=== PATIENT | male | born 1950 | race Two or more races ===

== ENCOUNTER → 2024-11-23 | Outpatient (CLI) | payer MEDICARE, SELFPAY ==
--- NOTE | 2024-11-23 13:02 | XR_ITS ---
Examination: MRI lumbar spine without contrast Date and time of exam: November 23, 2024 1330 hours Comparison May 21, 2010 INDICATIONS: Low back pain beginning 5 years ago severe the last 2 years radiating to the left leg Technique: Multiple MRI axial and sagittal sections lumbar spine. Sagittal T2-weighted images, TR 3500, TE 118 T1 weighted transverse sections, TR 688 T8.5, T2-weighted sagittal sections T1 weighted sagittal sections TR 621, TE 30 T2 axial sections, TR 4, 190, TE 84. Findings: Adequate alignment lumbar vertebral bodies on the lateral view No lumbar fracture Mild to moderate diffuse lumbar disc narrowing most prominent at L5-S1, L1-L2 Diffuse lumbar disc desiccation Adequate marrow signal lumbar vertebral bodies L5-S1 5 mm central lumbar disc bulge contiguous with the right S1 nerve root and producing mild bilateral L5 ganglionic compression L4-L5 4 mm central lumbar disc bulge L3-L4 6 mm central lumbar disc bulge L2-L3 2 mm central lumbar disc bulge L1-L2 2 mm central lumbar disc bulge IMPRESSION: L5-S1 5 mm central lumbar disc bulge contiguous with the right S1 nerve root, extending to the bilateral foramina producing bilateral mild L5 ganglionic compression L3-L4 6 mm central lumbar disc bulge
[2024-11-23 13:50] VITALS: BP 114/74; PULSE 84; RESP 20; O2SAT 92
[2024-11-23 13:55] VITALS: BP 114/72; PULSE 84; RESP 20; O2SAT 94
[2024-11-23 14:00] VITALS: BP 114/72; PULSE 84; RESP 20; O2SAT 92
[2024-11-23 14:05] VITALS: BP 115/75; PULSE 84; RESP 20; O2SAT 93
--- NOTE | 2024-11-23 14:26 | PC.NURSE ---
1407 patient has pacemaker and had MRI lumbar spine, tolerated procedure well, no abnormal cardiac arrhytimia noted
== END | disposition home or self-care (01) ==
PROVIDERS: Referring Provider Physician Assistant; Visit Provider Physician Assistant
DX: M51.379 Other intervertebral disc degeneration, lumbosacral region without mention of lumbar back pain or lower extremity pain (principal); M51.369 Other intervertebral disc degeneration, lumbar region without mention of lumbar back pain or lower extremity pain; G95.20 Unspecified cord compression
CPT/HCPCS: 72148

== ENCOUNTER 2025-04-30 13:23 | Emergency (ER) | payer OTHER, SELFPAY ==
[2025-04-30 13:39] VITALS: PULSE 95; RESP 16; O2SAT 97; BMI 29.7
--- NOTE | 2025-04-30 13:46 | EKG_ITS ---
[facility] Test Date: 2025-04-30 Pat Name: WAYNE JIMÉNEZ Department: Room: - Gender: Male Board Certified Family Physician: : [id number] Requested By: ED Temporary Provider Order Number: [id number] Reading MD: ED Temporary Provider Measurements Intervals Mart Rate: 61 P: WA: QRS: 107 QRSD: 148 T: 269 QT: 476 QTc: 480 Interpretive Statements ELECTRONIC VENTRICULAR PACEMAKER ABNORMAL RHYTHM ECG Compared to ECG 04/29/2023 13:23:09 Atrial-paced complex(es) or rhythm no longer present Intraventricular conduction delay no longer present /store/S0/[id number]/ecg/[id number].pdf
[2025-04-30 13:51] VITALS: BP 135/84; PULSE 66; RESP 19; TEMP 36.9; O2SAT 96
--- NOTE | 2025-04-30 14:08 | PD.EDNV ---
Nausea/Vomit./Diarrhea-RME/HPI General Chief complaint: Nausea/Vomiting/Diarrhea Stated complaint: WEAKNESS Time Seen by Provider: 04/30/25 13:47 Arrival date/time: 04/30/25 13:23 RME / HPI RME / HPI Narrative: 74 year old male with history of CAD s/p PCI x2, s/p pacemaker placement for bradycardia, hypertension, diabetes, hyperlipidemia, and sciatica presents to the ED BIBA from home for evaluation of nausea and vomiting beginning 3 days ago Thursday. Accompanied by subjective fevers, frequent hiccups in the last 2 days, mid abdominal pain, and back pain. Reports taking Zofran at home without improvement. Mentioned he has had positive sick contact at home, also sick with nausea vomiting beginning yesterday. Denies chest pain, cough, sore throat, diarrhea, or urinary symptoms. Related Data Home Medications ?Medication ?Instructions ?Recorded ?Confirmed aspirin 81 mg tablet,delayed 81 mg PO QDAY 05/16/19 03/29/23 release (Aspir-) atorvastatin 10 mg tablet 10 mg PO QDAY 05/16/19 03/29/23 carvedilol 6.25 mg tablet 6.25 mg PO BID 12/20/20 03/29/23 empagliflozin 25 mg tablet 25 mg PO QAM 12/20/20 03/29/23 (Jardiance) tramadol 50 mg tablet 50 mg PO TID 12/20/20 03/29/23 clopidogrel 75 mg tablet 75 mg PO QDAY 03/29/23 03/29/23 diphenhydramine 50 1 tab PO HS PRN Cramps 03/29/23 03/29/23 mg-acetaminophen 500 mg tablet doxazosin 4 mg tablet 4 mg PO QDAY 03/29/23 03/29/23 tirzepatide 5 mg/0.5 mL 5 mg subcut QWEEK 03/29/23 03/29/23 subcutaneous pen injector (Madeline) Previous Rx's ?Medication ?Instructions ?Recorded ondansetron 4 mg disintegrating 4 mg PO Q8H PRN nausea and 04/30/25 tablet vomiting #7 tabs prochlorperazine 25 mg rectal 25 mg WI Q12H PRN nausea and 04/30/25 suppository (Compro) vomiting #12 ea Allergies Allergy/AdvReac Type Severity Reaction Status Date / Time No Known Allergies Allergy Verified 04/30/25 13:45 Review of Systems Review of Systems Systems Reviewed: All systems reviewed, normal except as documented Past Medical History Past Medical History NEUROLOGIC: Positive Neurological Disorders and Anaya's Palsy CARDIAC: Positive Cardiac Disorders, Hypercholesterolemia and Hypertension RESPIRATORY: Positive Sleep Apnea MUSCULOSKELETAL: Positive Musculoskeletal Disorders ENT: Positive Cataracts and Eye Prosthesis ENDOCRINE: Positive Endocrine Disorders and Diabetes Mellitus Type 2 PSYCHO/SOCIAL: Positive Anxiety OTHER HISTORY: Positive Falls Family History FAMILY HISTORY: Positive Family Surgery Surgical History SURGICAL: Positive Coronary Stent Social History SMOKING STATUS: Never smoker ED Exam Narrative Physical exam: GENERAL APPEARANCE: alert and oriented x 4, well-developed, well-nourished, appears uncomfortable HEENT: Normocephalic, atraumatic; EOMI; lips are dry; oropharynx clear NECK: Supple LUNGS: CTABL HEART: Regular rate, regular rhythm ABDOMEN: non distended; normal BS; soft, epigastric and lower abdominal discomfort on palpation, no guarding, no rebound; no masses, no organomegaly, no hernia EXTREMITIES: atraumatic; no edema NEUROLOGIC: awake; alert and oriented x4 PSYCHIATRIC: appropriate mood and affect SKIN: warm, dry, normal color; no rashes Course Quality Measures none Orders Category Date Time Status Special Education Assistant STAT Care 04/30/25 14:08 Active EKG (ED ONLY) *Do not use* NOW Care 04/30/25 13:46 Completed Insert IV STAT Care 04/30/25 14:08 Active NPO STAT Care 04/30/25 14:08 Active EKG (ED Only) Stat Exams 04/30/25 13:46 Draft XR lumbar spine 2-3V Stat Exams 04/30/25 15:51 Completed CBC Stat Lab 04/30/25 14:29 Completed Comprehensive Metabolic Panel Stat Lab 04/30/25 14:29 Completed Lipase Stat Lab 04/30/25 14:29 Completed Magnesium Stat Lab 04/30/25 14:29 Completed Urinalysis Stat Lab 04/30/25 14:08 Ordered Famotidine Inj [Pepcid Inj] Med 04/30/25 14:08 Discontinued 20 mg IVP X1 ONE Ondansetron Inj [Zofran Inj] Med 04/30/25 14:08 Active 4 mg IVP Q1H PRN Pantoprazole Inj [Protonix Inj] Med 04/30/25 14:08 Discontinued 40 mg IVP X1 ONE Prochlorperazine Inj [Compazine Inj] Med 04/30/25 14:10 Discontinued 10 mg IM X1 ONE Sodium Chloride 0.9% 1000 ml [Ns] 1,000 ml Med 04/30/25 14:08 Discontinued IV 999 mls/hr Vital Signs Vital signs: Vital Signs Temperature 98.5 F 04/30/25 13:51 Pulse Rate 66 04/30/25 13:51 Respiratory Rate 19 04/30/25 13:51 Blood Pressure 135/84 H 04/30/25 13:51 Pulse Oximetry (%) 96 04/30/25 13:51 Oxygen Delivery Method Room Air 04/30/25 13:51 Pulse ox is 96% on room air which is adequate. Nausea/Vomiting/Diarrhea MDM Narrative MDM Narrative:: Gracy Hernandez am scribing for and in the presence of Dr. Glass. Patient data External records reviewed:: [facility] previous records (I reviewed ED Visit on 12/22/2023 ) and EMS form Clinical information provided by:: patient and EMS Social determinants that could affect healthcare access:: none Patient has the following chronic illnesses:: CAD s/p PCI x2, s/p pacemaker placement for bradycardia, hypertension, diabetes, hyperlipidemia, and sciatica How is presenting disease/condition affected by chronic disease/condition?: exacerbated by Evaluation data The following diagnostics were reviewed and interpreted by me:: lab results and EKG tracing(s) (04/30/2025 @ 13:52. Ventricular pacemaker,, rate 61, no STEMI. ) Lab and/or radiology exams considered but not ordered:: None Interpretation Summary: Ordering Physician: Amparo Glass MD Date of Service: 04/30/25 Procedure(s): XR lumbar spine 2-3V Accession Number(s): [id number] cc: Balbir Valdovinos MD; Amparo Glass MD; NO PRIMARY/FAMILY,PHYSICIAN~ Examination: Lumbar spine 3 views TECHNIQUE: AP lateral coned lateral lower lumbar spine 3 views Date and time: April 30, 2025, 6002 hours INDICATIONS: Patient fell today within the lower back, lower back pain. FINDINGS: No acute lumbar fracture Moderate to advanced degenerative disc disease L1-L2, L5-S1 No spondylolisthesis Moderate lumbar spondylosis IMPRESSION: No acute lumbar fracture Dictated By: Balbir Valdovinos MD Signed By: <Electronically signed by Balbir Valdovinos MD in OV> 04/30/25 1640 Medications / Prescriptions Medications / Prescriptions considered but not ordered:: None Medication administrations:: Medication Administration History Ondansetron HCl (Ondansetron Inj 2 Mg/Ml Inj 2 Ml) 4 mg IVP Q1H PRN PRN Reason: PERSISTENT NAUSEA OR VOMITING Last Admin: 04/30/25 15:28 Dose: 4 mg Documented By: VL Discontinued Medications Famotidine (Famotidine Inj 10 Mg/Ml Vial 2 Ml) 20 mg IVP X1 ONE Stop: 04/30/25 14:09 Last Admin: 04/30/25 15:28 Dose: 20 mg Documented By: VL Sodium Chloride (Ns) 1,000 mls @ 999 mls/hr IV .Q1H1M ONE Stop: 04/30/25 15:08 Last Admin: 04/30/25 15:29 Dose: 999 mls/hr Documented By: VL Pantoprazole Sodium (Pantoprazole Inj 40 Mg Vial) 40 mg IVP X1 ONE Stop: 04/30/25 14:09 Last Admin: 04/30/25 15:28 Dose: 40 mg Documented By: VL Prochlorperazine Edisylate (Prochlorperazine Inj 5 Mg/Ml Vial 2 Ml) 10 mg IM X1 ONE; Protocol Stop: 04/30/25 14:11 Last Admin: 04/30/25 15:28 Dose: 10 mg Documented By: VL See above Consultations Consultation(s) initiated? (list below): No Diagnosis Nausea Differential Diagnosis: food poisoning, gastroenteritis, drug-induced nausea and vomiting and dehydration Most likely diagnosis given after review of the tests above:: Influenza-like illness, nausea and vomiting, mild dehydration Admission Indicated Admission indicated?: not indicated Admission Request Was there a request for admission?: No Disposition Plan Disposition Plan: Discharge Discharge Attestation Discharge Attestation: The patient and all family members were given an opportunity to ask questions and understood the discharge instructions. Discharge instructions specifically effects, indications for sooner follow up or return to the emergency department, and the expected course of current diagnosis. Patient condition: Stable Discharge Plan Plan Patient Disposition: HOME (Self Care) Patient condition on transfer: Stable Prescriptions/Referrals Prescriptions/Med Rec: New prochlorperazine [Compro] 25 mg suppository 25 mg WI Q12H PRN (Reason: nausea and vomiting) Qty: 12 0RF ondansetron 4 mg tablet,disintegrating 4 mg PO Q8H PRN (Reason: nausea and vomiting) Qty: 7 0RF No Action carvedilol 6.25 mg Tablet 6.25 mg PO BID tramadol 50 mg Tablet 50 mg PO TID Jardiance 25 mg Tablet 25 mg PO QAM atorvastatin 10 mg Tablet 10 mg PO QDAY aspirin [Aspir-81] 81 mg Tablet,Delayed Release (Dr/Ec) 81 mg PO QDAY clopidogrel 75 mg tablet 75 mg PO QDAY doxazosin 4 mg tablet 4 mg PO QDAY diphenhydramine-acetaminophen 50-500 mg Tablet 1 tab PO HS PRN (Reason: Cramps) Mounjaro 5 mg/0.5 mL pen injector 5 mg SUBCUT QWEEK Rx Instructions: takes once a week on thursday Referrals: No Primary/Family,Physician [Primary Care Provider] - In 1 week Problem List Clinical Impression: Influenza-like illness, Nausea & vomiting Patient/Caregiver Discharge Instructions Diet Instructions: Avoid any junk food, fast food, caffeine, alcohol at this time. Make sure that you are drinking sufficient fluids to ensure adequate hydration. 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 Education Materials: Self-Care for Vomiting and Diarrhea, ED Diet for Vomiting or ..., ED Influenza (Adult) Print Language: Cypriot Stand Alone Forms: Lindsay Award Info., Patient Portal Info Letter
[2025-04-30 14:43] LABS: Basophils # (Auto) 0.0 Thou/mm3 (0.0-0.2); Basophils % (Auto) 0 % (0-2.5); Eosinophils # (Auto) 0.0 Thou/mm3 (0.0-0.5); Eosinophils % (Auto) 0 % (0-10); Hematocrit 49.9 % (41.0-53.0); Hemoglobin 16.7 g/dL (13.5-16.0); Immature Granulocytes Auto 0.04 Thou/mm3 (0.00-0.00); Lymphocytes # (Auto) 1.8 Thou/mm3 (1.0-4.8); Lymphocytes % (Auto) 18 % (10-50); Mean Corpuscular HGB Conc 33.5 g/dl (31.0-37.0); Mean Corpuscular Hemoglobin 29.9 pg (25.0-35.0); Mean Corpuscular Volume 89 fL (80-100); Monocytes # (Auto) 1.2 Thou/mm3 (0.0-0.8); Monocytes % (Auto) 12 % (0-12); Neutrophils # (Auto) 7.0 Thou/mm3 (1.8-7.7); Neutrophils % (Auto) 69 % (37-80); Nucleated Red Blood Cell # 0.00 Thou/mm3 (0.00-0.00); Nucleated Red Blood Cell % 0 /100 WBC (0); Platelet Count 235 Thou/mm3 (140-440); RDW Standard Deviation 52.9 fL (35.1-43.9); Red Blood Count 5.59 Miln/mm3 (4.50-5.90); White Blood Count 10.0 Thou/mm3 (3.8-10.6)
[2025-04-30 15:05] LABS: Alanine Aminotransferase 13 U/L (10-49); Albumin, Serum 4.2 gm/dL (3.4-4.8); Albumin/Globulin Ratio 1.6 (1.2-2.2); Alkaline Phosphatase 76 U/L (46-116); Anion Gap 9 (7-16); Aspartate Amino Transferase 13 U/L (0-34); BUN/Creatinine Ratio 10 Ratio (12-20); Bilirubin,Total 2.0 mg/dL (0.3-1.2); Blood Urea Nitrogen 10 mg/dL (9-23); Calcium 9.3 mg/dL (8.3-10.6); Calcium (Corrected) 9.3 mg/dL (8.5-10.1); Carbon Dioxide 26.9 mMol/L (20.0-31.0); Chloride 98 mMol/L (98-107); Creatinine (Component) 1.0 mg/dL (0.6-1.3); Estimated Creatinine Clearance 78.9 mL/min (>60); Globulin 2.7 gm/dL (2.3-3.5); Glucose 281 mg/dL (74-106); Lipase 48 U/L (12-53); Magnesium 1.5 mg/dL (1.6-2.6); Osmolality,Calculated 277 (275-295); Potassium 4.1 mMol/L (3.4-5.1); Sodium 134 mMol/L (136-145); Total Protein 6.9 gm/dL (5.7-8.2); eGFR > 60 See Note
[2025-04-30 15:19] VITALS: PULSE 72
[2025-04-30] MEDS: ONDANSETRON INJ 2 MG/ML INJ 2 ML 4 MG IVP (15:28)
[2025-04-30] MEDS: PROCHLORPERAZINE INJ 5 MG/ML VIAL 2 ML 10 MG IM (15:28)
[2025-04-30] MEDS: FAMOTIDINE INJ 10 MG/ML VIAL 2 ML 20 MG IVP (15:28)
[2025-04-30] MEDS: SODIUM CHLORIDE 0.9% 1000 ML 1,000 ML 999 ML IV (15:29)
--- NOTE | 2025-04-30 15:51 | XR_ITS ---
Examination: Lumbar spine 3 views TECHNIQUE: AP lateral coned lateral lower lumbar spine 3 views Date and time: April 30, 2025, 6002 hours INDICATIONS: Patient fell today within the lower back, lower back pain. FINDINGS: No acute lumbar fracture Moderate to advanced degenerative disc disease L1-L2, L5-S1 No spondylolisthesis Moderate lumbar spondylosis IMPRESSION: No acute lumbar fracture
[2025-04-30 16:29] VITALS: BP 147/98; PULSE 65; RESP 12; TEMP 37; O2SAT 95
[2025-04-30 17:45] VITALS: BP 147/98; PULSE 61; RESP 18; TEMP 36.4; O2SAT 98
== END 2025-04-30 18:15 | disposition home or self-care (01) ==
PROVIDERS: Emergency Provider Family Medicine
DX: R53.1 Weakness (principal); R11.2 Nausea with vomiting, unspecified; I25.10 Atherosclerotic heart disease of native coronary artery without angina pectoris; M54.40 Lumbago with sciatica, unspecified side; I10 Essential (primary) hypertension; E11.9 Type 2 diabetes mellitus without complications; E78.00 Pure hypercholesterolemia, unspecified; Z95.0 Presence of cardiac pacemaker; Z95.5 Presence of coronary angioplasty implant and graft; Z79.84 Long term (current) use of oral hypoglycemic drugs; Z79.82 Long term (current) use of aspirin; Z79.85 Long-term (current) use of injectable non-insulin antidiabetic drugs
CPT/HCPCS: 36415; 72100; 80053; 81001; 83690; 83735; 85025; 93005; 96361; 96374; 96375; 99284; J0780; J2405; J2470; J3490; J7030

== ENCOUNTER 2025-05-03 11:40 | Emergency (ER) | payer OTHER, SELFPAY ==
[2025-05-03 11:43] VITALS: BP 149/92; PULSE 81; RESP 18; TEMP 37.1; O2SAT 95
[2025-05-03 11:52] VITALS: PULSE 84; RESP 18; O2SAT 100; BMI 28.8
--- NOTE | 2025-05-03 12:34 | PD.EDRME ---
Rapid Medical Screening Exam RME Arrival date/time: 05/03/25 11:40 Chief Complaint: Upper Respiratory Infection Vital signs: Vital Signs Temperature 98.8 F 05/03/25 11:43 Pulse Rate 81 05/03/25 11:43 Respiratory Rate 18 05/03/25 11:43 Blood Pressure 149/92 H 05/03/25 11:43 Pulse Oximetry (%) 95 05/03/25 11:43 Oxygen Delivery Method Room Air 05/03/25 11:43 Pulse ox is 95% Vital signs reviewed by provider: Yes RME Narrative: 74-year-old male presents to the ED with a complaint of continued flulike symptoms to include headache with nausea and vomiting. Denies bloody stools. Patient had been seen here up to 2 days ago and discharged to home
[2025-05-03] MEDS: ONDANSETRON ODT 4 MG TABRAP PO (12:46)
[2025-05-03 13:03] LABS: Collection Type, Urine Clean Catch; Squamous Epithelial Cell,Urine 0 /hpf (0-5)
--- NOTE | 2025-05-03 13:28 | PD.EDURI ---
Upper Respiratory Inf. RME/HPI General Chief Complaint: Upper Respiratory Infection Stated Complaint: COLD AND FLU LIKE SYMPTOMS, DIAGNOSED W/FLU YEST. Time Seen by Provider: 05/03/25 13:28 Arrival date/time: 05/03/25 11:40 RME / HPI RME / HPI Narrative: 74-year-old male presents to the ED with a complaint of continued flulike symptoms to include headache with nausea and vomiting. Denies bloody stools. Patient had been seen here up to 2 days ago and discharged to home DR. VARGAS MAIN ED EVALUATION 74 year old male with history of CAD s/p PCI x2, s/p pacemaker placement for bradycardia, hypertension, diabetes, hyperlipidemia, and sciatica present to the ED for continued generalized weakness accompanied by nausea, vomiting, and decreased appetite today. Reportedly was evaluated here 3 days ago for similar symptoms and diagnosed with influenza like illness (with being diagnosed with Influenza A/B that day as well). States since being home his symptoms are not improving and had expected them to resolve within a few days. Consulted with PCP today who advised he return to the ED for further evaluation and treatment. No new symptoms reported from 3 days ago. Related Data Home Medications ?Medication ?Instructions ?Recorded ?Confirmed aspirin 81 mg tablet,delayed 81 mg PO QDAY 05/16/19 03/29/23 release (Aspir-) atorvastatin 10 mg tablet 10 mg PO QDAY 05/16/19 03/29/23 carvedilol 6.25 mg tablet 6.25 mg PO BID 12/20/20 03/29/23 empagliflozin 25 mg tablet 25 mg PO QAM 12/20/20 03/29/23 (Jardiance) tramadol 50 mg tablet 50 mg PO TID 12/20/20 03/29/23 clopidogrel 75 mg tablet 75 mg PO QDAY 03/29/23 03/29/23 diphenhydramine 50 1 tab PO HS PRN Cramps 03/29/23 03/29/23 mg-acetaminophen 500 mg tablet doxazosin 4 mg tablet 4 mg PO QDAY 03/29/23 03/29/23 tirzepatide 5 mg/0.5 mL 5 mg subcut QWEEK 03/29/23 03/29/23 subcutaneous pen injector (Madeline) Previous Rx's ?Medication ?Instructions ?Recorded ondansetron 4 mg disintegrating 4 mg PO Q8H PRN nausea and 04/30/25 tablet vomiting #7 tabs prochlorperazine 25 mg rectal 25 mg MD Q12H PRN nausea and 04/30/25 suppository (Compro) vomiting #12 ea ondansetron 4 mg disintegrating 4 mg PO Q8H PRN nausea and 05/03/25 tablet vomiting #7 tabs oseltamivir 75 mg capsule (Tamiflu) 75 mg PO BID 5 days #10 caps 05/03/25 Allergies Allergy/AdvReac Type Severity Reaction Status Date / Time No Known Allergies Allergy Verified 05/03/25 11:52 Review of Systems Review of Systems Systems Reviewed: All systems reviewed, normal except as documented Past Medical History Past Medical History NEUROLOGIC: Positive Neurological Disorders and Anaya's Palsy CARDIAC: Positive Cardiac Disorders, Hypercholesterolemia and Hypertension RESPIRATORY: Positive Sleep Apnea MUSCULOSKELETAL: Positive Musculoskeletal Disorders ENT: Positive Cataracts and Eye Prosthesis ENDOCRINE: Positive Endocrine Disorders and Diabetes Mellitus Type 2 PSYCHO/SOCIAL: Positive Anxiety OTHER HISTORY: Positive Falls Family History FAMILY HISTORY: Positive Family Surgery Surgical History SURGICAL: Positive Coronary Stent Social History SMOKING STATUS: Former smoker ED Exam Narrative Physical exam: Constitutional: Awake, alert, nontoxic appearing, does not appear to be in acute distress, sitting upright in bed, angry appearance, speaking loudly during initial interview. HEENT: Normocephalic, atraumatic, extraocular movements intact Neck: Supple CV: Regular rate and rhythm. Lungs: Clear to auscultation bilaterally, no wheezing, rales, rhonchi. No respiratory distress noted. Abd: Soft, mild discomfort in the upper abdomen, no rebound, no guarding, no HSM noted to palpation Extremities: No deformities, no edema noted Neuro: AAOx3, no acute neuro deficit noted. Skin: Warm, dry, intact Course Course Course Narrative: 1710h: Labs were reviewed. No significant acute abnormalities noted. Patient's blood glucose is noted to be 246. He received IVFs here and ok to take his home medications upon discharge. Received IV fluids, was able to pass p.o. challenge well, tolerated ambulation and was visualized walking up and down hallways of the ED with no evidence of imbalance or abnormal gait after completion of IVFs. Patient has influenza A with expected course to last at least a week or more. This was explained to patient who is quite angry that his symptoms have not yet resolved. As he is clinically nontoxic in appearance, vitally stable, no respiratory distress, tolerating PO, and ambulating without difficulty, there is no indication for further emergent workup or treatment at this time. Have given prescription for antiemetics for home previously. Can offer same again. Though unlikely to have significant benefit or change course of illness at this time - patient quite insistent on wanting antiviral medication stating that he pays a substantial amount of money for insurance each month and deserves better treatment. Was given initial dose of Tamiflu here and prescription for home. He is stable for discharge. Advised on outpatient follow-up with PCP as needed. Always welcome to return to the emergency department for significant worsening symptoms. Patient remains very angry and unhappy with treatment, insisting that more should have been done for him. Discharged in stable condition. Quality Measures none Orders Category Date Time Status CBC Stat Lab 05/03/25 13:04 Completed CMP [Comprehensive Metabolic Panel] Stat Lab 05/03/25 13:04 Completed COVID-19 Antigen (In-House) Stat Lab 05/03/25 23:59 Ordered FLU A&B [Influenza A & B Rapid Panel] Stat Lab 05/03/25 12:36 Ordered Urinalysis, C/S if Indicated Stat Lab 05/03/25 12:48 Completed Ondansetron Inj [Zofran Inj] Med 05/03/25 13:53 Discontinued 4 mg IVP X1 ONE Ondansetron Odt [Zofran Odt] Med 05/03/25 12:36 Discontinued 4 mg PO X1 ONE Oseltamivir [Tamiflu] Med 05/03/25 13:53 Discontinued 75 mg PO X1 ONE Sodium Chloride 0.9% 1000 ml [Ns] 2,000 ml Med 05/03/25 13:53 Discontinued IV 1,000 mls/hr Vital Signs Vital signs: Vital Signs Temperature 98.8 F 05/03/25 11:43 Pulse Rate 81 05/03/25 11:43 Respiratory Rate 18 05/03/25 11:43 Blood Pressure 149/92 H 05/03/25 11:43 Pulse Oximetry (%) 95 05/03/25 11:43 Oxygen Delivery Method Room Air 05/03/25 11:43 Pulse ox is 95% on room air which is adequate. Upper Respiratory Infection MDM Narrative MDM Narrative:: Gracy Hernandez am scribing for and in the presence of Dr. Vargas. Patient data External records reviewed:: [facility] previous records (I reviewed ED visit from 04/30/2025 ) Clinical information provided by:: patient Social determinants that could affect healthcare access:: none Patient has the following chronic illnesses:: CAD s/p PCI x2, s/p pacemaker placement for bradycardia, hypertension, diabetes, hyperlipidemia, and sciatica How is presenting disease/condition affected by chronic disease/condition?: exacerbated by Evaluation data The following diagnostics were reviewed and interpreted by me:: lab results Lab and/or radiology exams considered but not ordered:: None Interpretation Summary: No significant acute abnormalities noted. Medications / Prescriptions Medications or Prescriptions considered but not ordered:: None Medication administrations:: Medication Administration History Discontinued Medications Sodium Chloride (Ns) 2,000 mls @ 1,000 mls/hr IV .Q2H ONE Stop: 05/03/25 15:52 Last Admin: 05/03/25 14:08 Dose: 1,000 mls/hr Documented By: VG Ondansetron HCl (Ondansetron Odt 4 Mg Tabrap) 4 mg PO X1 ONE; Protocol Stop: 05/03/25 12:37 Last Admin: 05/03/25 12:46 Dose: 4 mg Documented By: OA Ondansetron HCl (Ondansetron Inj 2 Mg/Ml Inj 2 Ml) 4 mg IVP X1 ONE; Protocol Stop: 05/03/25 13:54 Last Admin: 05/03/25 14:07 Dose: 4 mg Documented By: MIKA Oseltamivir Phosphate (Oseltamivir 75 Mg Capsule) 75 mg PO X1 ONE Stop: 05/03/25 13:54 Last Admin: 05/03/25 14:08 Dose: 75 mg Documented By: VG See above Consultations Consultation(s) initiated? (list below): No Diagnosis Upper Respiratory Differential Diagnosis: upper respiratory infection, viral infection, bronchitis, influenza and pharyngitis Most likely diagnosis given after review of the tests above:: Influenza A Admission Indicated Admission indicated?: not indicated Admission Request Was there a request for admission?: No Disposition Plan Disposition Plan: Discharge Discharge Attestation Discharge Attestation: The patient and all family members were given an opportunity to ask questions and understood the discharge instructions. Discharge instructions specifically effects, indications for sooner follow up or return to the emergency department, and the expected course of current diagnosis. Patient condition: Stable Critical Care Time Critical Care Time Critical Care Time: No Discharge Plan Plan Patient Disposition: HOME (Self Care) Patient condition on transfer: Stable Prescriptions/Referrals Prescriptions/Med Rec: New oseltamivir [Tamiflu] 75 mg capsule 75 mg PO BID 5 Days Qty: 10 0RF ondansetron 4 mg tablet,disintegrating 4 mg PO Q8H PRN (Reason: nausea and vomiting) Qty: 7 0RF No Action carvedilol 6.25 mg Tablet 6.25 mg PO BID tramadol 50 mg Tablet 50 mg PO TID Jardiance 25 mg Tablet 25 mg PO QAM atorvastatin 10 mg Tablet 10 mg PO QDAY aspirin [Aspir-81] 81 mg Tablet,Delayed Release (Dr/Ec) 81 mg PO QDAY clopidogrel 75 mg tablet 75 mg PO QDAY doxazosin 4 mg tablet 4 mg PO QDAY diphenhydramine-acetaminophen 50-500 mg Tablet 1 tab PO HS PRN (Reason: Cramps) Mounjaro 5 mg/0.5 mL pen injector 5 mg SUBCUT QWEEK Rx Instructions: takes once a week on thursday prochlorperazine [Compro] 25 mg suppository 25 mg MD Q12H PRN (Reason: nausea and vomiting) Qty: 12 0RF ondansetron 4 mg tablet,disintegrating 4 mg PO Q8H PRN (Reason: nausea and vomiting) Qty: 7 0RF Referrals: Yazan Ray [Primary Care Provider] - In 1 week Problem List Clinical Impression: Influenza A Patient/Caregiver Discharge Instructions Education Materials: ED Influenza (Adult) Print Language: [place] Korean Stand Alone Forms: Lindsay Award Info., Patient Portal Info Letter
[2025-05-03 13:37] LABS: Basophils # (Auto) 0.0 Thou/mm3 (0.0-0.2); Basophils % (Auto) 0 % (0-2.5); Eosinophils # (Auto) 0.1 Thou/mm3 (0.0-0.5); Eosinophils % (Auto) 1 % (0-10); Hematocrit 44.6 % (41.0-53.0); Hemoglobin 14.9 g/dL (13.5-16.0); Immature Granulocytes Auto 0.02 Thou/mm3 (0.00-0.00); Lymphocytes # (Auto) 2.1 Thou/mm3 (1.0-4.8); Lymphocytes % (Auto) 29 % (10-50); Mean Corpuscular HGB Conc 33.4 g/dl (31.0-37.0); Mean Corpuscular Hemoglobin 30.0 pg (25.0-35.0); Mean Corpuscular Volume 90 fL (80-100); Monocytes # (Auto) 0.7 Thou/mm3 (0.0-0.8); Monocytes % (Auto) 10 % (0-12); Neutrophils # (Auto) 4.3 Thou/mm3 (1.8-7.7); Neutrophils % (Auto) 60 % (37-80); Nucleated Red Blood Cell # 0.00 Thou/mm3 (0.00-0.00); Nucleated Red Blood Cell % 0 /100 WBC (0); Platelet Count 223 Thou/mm3 (140-440); RDW Standard Deviation 51.8 fL (35.1-43.9); Red Blood Count 4.97 Miln/mm3 (4.50-5.90); White Blood Count 7.2 Thou/mm3 (3.8-10.6)
[2025-05-03 13:55] LABS: Bacteria,Urine Rare; Budding Yeast,Urine Present; RBC,Urine 2 /hpf (0-3); WBC,Urine 2 /hpf (0-5)
[2025-05-03 14:05] LABS: Alanine Aminotransferase 8 U/L (10-49); Albumin, Serum 3.7 gm/dL (3.4-4.8); Albumin/Globulin Ratio 1.7 (1.2-2.2); Alkaline Phosphatase 59 U/L (46-116); Anion Gap 7 (7-16); Aspartate Amino Transferase 10 U/L (0-34); BUN/Creatinine Ratio 10 Ratio (12-20); Bilirubin,Total 1.1 mg/dL (0.3-1.2); Blood Urea Nitrogen 9 mg/dL (9-23); Calcium 9.5 mg/dL (8.3-10.6); Calcium (Corrected) 9.7 mg/dL (8.5-10.1); Carbon Dioxide 29.3 mMol/L (20.0-31.0); Chloride 99 mMol/L (98-107); Creatinine (Component) 0.9 mg/dL (0.6-1.3); Estimated Creatinine Clearance 86.4 mL/min (>60); Globulin 2.2 gm/dL (2.3-3.5); Glucose 246 mg/dL (74-106); Osmolality,Calculated 276 (275-295); Potassium 4.2 mMol/L (3.4-5.1); Sodium 135 mMol/L (136-145); Total Protein 5.9 gm/dL (5.7-8.2); eGFR > 60 See Note
[2025-05-03] MEDS: ONDANSETRON INJ 2 MG/ML INJ 2 ML 4 MG IVP (14:07)
[2025-05-03] MEDS: OSELTAMIVIR 75 MG CAPSULE PO (14:08)
[2025-05-03] MEDS: SODIUM CHLORIDE 0.9% 1000 ML 2,000 ML IV (14:08)
[2025-05-03 14:10] LABS: Amorphous Crystals,Urine Present (Absent); Bilirubin,Urine Negative (Negative); Blood,Urine Negative (Negative); Clarity,Urine Turbid (Clear/Hazy); Color,Urine Yellow (Lt Yel-Yel); Culture Indicated,Urine Not Indicated; Glucose, Urine 4+ (Negative); Ketones,Urine Trace (Negative); Leukocyte Esterase,Urine Negative (Negative); Nitrite,Urine Negative (Negative); PH,Urine 7.5 (5.0-7.0); Protein,Urine Negative (Neg - Trace); Specific Gravity,Urine 1.018 (1.001-1.035); Urobilinogen,Urine 2.0 mg/dL (0.0-1.0)
[2025-05-03 17:33] VITALS: BP 124/84; PULSE 77; TEMP 36.6
== END 2025-05-03 17:34 | disposition home or self-care (01) ==
PROVIDERS: Physician Assistant; Emergency Provider Family Medicine; PCP Physician Assistant
DX: J10.1 Influenza due to other identified influenza virus with other respiratory manifestations (principal); J10.2 Influenza due to other identified influenza virus with gastrointestinal manifestations; I25.10 Atherosclerotic heart disease of native coronary artery without angina pectoris; E11.9 Type 2 diabetes mellitus without complications; E78.5 Hyperlipidemia, unspecified; I10 Essential (primary) hypertension; Z95.5 Presence of coronary angioplasty implant and graft
CPT/HCPCS: 36415; 80053; 81001; 85025; 87400; 87502; 87811; 96361; 96374; 99283; J2405; J7030; Q0162; A9270

== ENCOUNTER → 2025-05-29 | Outpatient (CLI) | payer MEDICARE, SELFPAY ==
--- NOTE | 2025-05-29 14:10 | XR_ITS ---
Examination: Lumbar spine 7 views TECHNIQUE: AP, lateral, coned lateral lower lumbar spine, standing lateral flexion, standing lateral extension, LPO, RPO 7 views Date and time: May 29, 2025 1432 hours INDICATIONS: Low back pain years worse the last month. FINDINGS: Mild to moderate facet arthropathy No lumbar fracture. Diffuse lumbar disc narrowing, advanced L1-L2, L5-S1 No spondylolisthesis Marked reduced range of motion between flexion and extension IMPRESSION: Diffuse lumbar degenerative disc disease, advanced L1-L2, L5-S1
== END | disposition home or self-care (01) ==
LOC: SDIM 13:52
PROVIDERS: PCP Physician Assistant; Referring Provider Nurse Practitioner; Visit Provider Nurse Practitioner
DX: M51.370 Other intervertebral disc degeneration, lumbosacral region with discogenic back pain only (principal); M51.360 Other intervertebral disc degeneration, lumbar region with discogenic back pain only
CPT/HCPCS: 72114